=== PATIENT | male | born 1955 | race Caucasian/White ===

== ENCOUNTER 2024-06-09 07:26 | Day surgery (SDC) | payer OTHER, MEDICARE ==
[~2024-06-09] VITALS: Ht 182.9 cm; Wt 100.8 kg
[2024-06-09] MEDS ORDERED: propofoL 50 ML IV ONE (07:32)
[2024-06-09] MEDS ORDERED: Lactated Ringer's 1,000 ML IV ONE ×2 (07:32→08:23)
[2024-06-09] MEDS ORDERED: Aspir 8181 MG (07:38)
[2024-06-09] MEDS ORDERED: LOSA25 PO (07:38)
[2024-06-09] MEDS ORDERED: [UNRECOGNIZED DRUG - OTHER] (07:39)
[2024-06-09] MEDS ORDERED: DOXY100 (07:39)
== END 2024-06-09 09:44 | disposition home or self-care (01) ==
LOC: ORSCSDS 07:26
PROVIDERS: Surgery
PROC: 0DBH8ZX Excision of Cecum, Via Natural or Artificial Opening Endoscopic, Diagnostic (ICD-10-PCS; principal; 2024-06-09 08:45)
DX: Z12.11 Encounter for screening for malignant neoplasm of colon (principal); D12.0 Benign neoplasm of cecum; I10 Essential (primary) hypertension; K64.8 Other hemorrhoids; Z79.82 Long term (current) use of aspirin; Z79.899 Other long term (current) drug therapy
CPT/HCPCS: 88305; J2704; J7120